=== PATIENT | female | born 1995 | race Caucasian/White ===

== ENCOUNTER 2023-11-11 09:49 | Outpatient (CLI) | payer BC, MEDICAID, SELFPAY ==
--- NOTE | 2023-11-11 09:45 | CRLHL7_ITS ---
For Patients: As a result of the Cures Act, medical imaging exams and procedure reports are released immediately into your electronic medical record. You may view this report before your referring provider. If you have questions, please contact your health care provider. INDICATION: First trimester scan, establish dates. COMPARISON: None. TECHNIQUE: Real-time france-scale imaging of the pelvis was performed. FINDINGS: Sonographic imaging demonstrates a single living intrauterine gestation. The embryo demonstrates a regular cardiac rate measuring 180 beats per minute. The embryo`s crown-rump length measurement of 2.7 cm corresponds to a gestational age of 9 weeks 3 days with a sonographic due date of 06/12/2024. There is a normal-appearing yolk sac. There are no gross abnormalities noted within the embryo at this early state of development. The gestational sac has a normal appearance. There is no evidence of a perigestational hemorrhage. The amount of fluid within the sac appears appropriate for gestational age. The cervix is closed. The myometrium appears normal. Normal right ovary. Left ovary not visualized. There are no suspicious fluid collections noted in the cul-de-sac. IMPRESSION: Single living intrauterine with sonographic gestational age 9 weeks 3 days and sonographic due date of 06/12/2024. Dictated by Zack Nicolas MD @ 11/11/2023 12:19:51 PM (Electronically Signed)
== END 2023-11-11 09:50 | disposition home or self-care (01) ==
LOC: US 09:51
PROVIDERS: Visit Provider Registered Nurse
DX: Z34.91 Encounter for supervision of normal pregnancy, unspecified, first trimester (principal); Z3A.09 9 weeks gestation of pregnancy
CPT/HCPCS: 76817

== ENCOUNTER 2023-12-09 10:04 | Outpatient (CLI) | payer BC, MEDICAID, SELFPAY | END 2023-12-09 10:05 | disposition home or self-care (01) | PROVIDERS: Visit Provider Obstetrics & Gynecology | DX: Z34.82 Encounter for supervision of other normal pregnancy, second trimester (principal) | CPT/HCPCS: 87491; 87591 ==

== ENCOUNTER 2024-01-06 10:47 | Outpatient (CLI) | payer BC, MEDICAID, SELFPAY | END 2024-01-06 10:48 | disposition home or self-care (01) | LOC: NFLDREF 10:48 | PROVIDERS: Visit Provider Obstetrics & Gynecology | DX: E03.9 Hypothyroidism, unspecified (principal) | CPT/HCPCS: 84443 ==

== ENCOUNTER 2024-01-21 08:11 | Outpatient (CLI) | payer BC, MEDICAID, SELFPAY | END 2024-01-21 08:12 | disposition home or self-care (01) | LOC: US 08:12 | PROVIDERS: Visit Provider Obstetrics & Gynecology | DX: O99.212 Obesity complicating pregnancy, second trimester (principal); Z3A.19 19 weeks gestation of pregnancy | CPT/HCPCS: 76811 ==

== ENCOUNTER 2024-01-21 10:07 | Outpatient (CLI) | payer BC, MEDICAID, SELFPAY | END 2024-01-21 10:08 | disposition home or self-care (01) | LOC: NFLDREF 10:09 | PROVIDERS: Visit Provider Obstetrics & Gynecology | DX: O99.212 Obesity complicating pregnancy, second trimester (principal); Z3A.19 19 weeks gestation of pregnancy | CPT/HCPCS: 86235 ==

== ENCOUNTER 2024-02-18 12:32 | Outpatient (CLI) | payer BC, MEDICAID, SELFPAY | END 2024-02-18 12:33 | disposition home or self-care (01) | LOC: US 12:33 | PROVIDERS: Visit Provider Obstetrics & Gynecology | DX: O99.212 Obesity complicating pregnancy, second trimester (principal); O26.892 Other specified pregnancy related conditions, second trimester; M06.9 Rheumatoid arthritis, unspecified; Z3A.23 23 weeks gestation of pregnancy | CPT/HCPCS: 76816 ==

== ENCOUNTER 2024-03-19 09:02 | Outpatient (CLI) | payer BC, MEDICAID, SELFPAY ==
--- NOTE | 2024-03-19 09:15 | CRLHL7_ITS ---
For Patients: As a result of the Century Cures Act, medical imaging exams and procedure reports are released immediately into your electronic medical record. You may view this report before your referring provider. If you have questions, please contact your health care provider. INDICATION: circumvallate placenta COMPARISON: 02/18/2024 TECHNIQUE: Real time france scale imaging of the fetus was performed. FINDINGS: Sonographic imaging demonstrates a single living intrauterine gestation. Fetus demonstrates a regular cardiac rate of 150 beats per minute. Fetus has a transverse position, head maternal right. The placenta lies posteriorly. Amniotic fluid volume appears normal and there is a single deepest vertical pocket: 6.7 cm. The estimated weight is 1471gm which lies at the greater than 97th %. On the prior OB ultrasound exam dated 02/18/2024 the estimated weight was at the 87th%. BPD 51st percentile. HC 82nd percentile. AC 96th percentile. FL 90th percentile. The HC/AC ratio measures 1.05 range (0.98-1.20). IMPRESSION: Sonographic gestational age 29 weeks 3 days and sonographic due date 06/01/2024. Sonographic age 12 days ahead of the clinical age. Estimated weight greater than 97th percentile. Abdominal circumference is 96th percentile. Dictated by Zack Nicolas MD @ 03/19/2024 8:21:39 PM (Electronically Signed)
== END 2024-03-19 09:03 | disposition home or self-care (01) ==
LOC: US 09:02
PROVIDERS: Visit Provider Obstetrics & Gynecology
DX: O43.113 Circumvallate placenta, third trimester (principal); Z3A.29 29 weeks gestation of pregnancy
CPT/HCPCS: 76816

== ENCOUNTER 2024-03-19 09:38 | Outpatient (CLI) | payer BC, MEDICAID, SELFPAY | END 2024-03-19 09:39 | disposition home or self-care (01) | PROVIDERS: Visit Provider Obstetrics & Gynecology | DX: Z34.92 Encounter for supervision of normal pregnancy, unspecified, second trimester (principal); Z3A.27 27 weeks gestation of pregnancy | CPT/HCPCS: 86592; J2791 ==

== ENCOUNTER 2024-04-02 08:16 | Outpatient (CLI) | payer BC, MEDICAID, SELFPAY | END 2024-04-02 08:17 | disposition home or self-care (01) | LOC: NFLDREF 13:28 | PROVIDERS: Visit Provider Obstetrics & Gynecology | DX: Z34.83 Encounter for supervision of other normal pregnancy, third trimester (principal); E03.9 Hypothyroidism, unspecified | CPT/HCPCS: 84443 ==

== ENCOUNTER 2024-04-19 07:53 | Outpatient (CLI) | payer BC, MEDICAID, SELFPAY ==
--- NOTE | 2024-04-19 08:15 | CRLHL7_ITS ---
For Patients: As a result of the Century Cures Act, medical imaging exams and procedure reports are released immediately into your electronic medical record. You may view this report before your referring provider. If you have questions, please contact your health care provider. INDICATION: Gestational Diabetes Mellitus TECHNIQUE: Real time france scale imaging of the fetus was performed. COMPARISON: 03/19/2024 FINDINGS/IMPRESSION: Sonographic imaging demonstrates a single living intrauterine gestation. Fetus demonstrates a regular cardiac rate of 141 beats per minute. Fetus has a breech position. The placenta lies posteriorly. Amniotic fluid volume appears normal and there is a single deepest pocket of 6.2 cm. The estimated weight is 2227gm which lies at the 83rd %. On the prior OB ultrasound dated 03/19/2024 the estimated weight was at the greater than 97th percentile. BPD 91st percentile. HC 95th percentile. AC 88th percentile. FL 44th percentile. Sonographic gestational age 34 weeks 0 days and sonographic due date 05/31/2024. Sonographic age 13 days ahead of the clinical dates The fetus was active and demonstrated normal breathing movements. There was normal flexion and extension of the trunk and extremities. Dictated by Zack Nicolas MD @ 04/19/2024 9:26:25 AM (Electronically Signed)
== END 2024-04-19 07:54 | disposition home or self-care (01) ==
LOC: US 07:53
PROVIDERS: Visit Provider Obstetrics & Gynecology
DX: O24.419 Gestational diabetes mellitus in pregnancy, unspecified control (principal); Z3A.34 34 weeks gestation of pregnancy
CPT/HCPCS: 76816; 76819

== ENCOUNTER 2024-04-26 12:14 | Outpatient (CLI) | payer BC, MEDICAID, SELFPAY ==
--- NOTE | 2024-04-26 12:15 | CRLHL7_ITS ---
For Patients: As a result of the Century Cures Act, medical imaging exams and procedure reports are released immediately into your electronic medical record. You may view this report before your referring provider. If you have questions, please contact your health care provider. INDICATION: Maternal gestational diabetes TECHNIQUE: Ultrasound OB pelvis transabdominal. Real-time france-scale imaging of the fetus was performed with color Doppler and spectral Doppler analysis of the umbilical artery without stress testing. COMPARISON: 04/19/2024 FINDINGS: Sonographic imaging demonstrates a single living intrauterine gestation. Fetus demonstrates a regular cardiac rate of 137 beats per minute. Fetus has a cephalic orientation. The placenta lies posterior. Amniotic fluid volume appears normal with a MVP of 6.7 cm. breathing movements, motion, and tone were all observed. IMPRESSION: Single viable intrauterine with a biophysical profile 12/03. Dictated by Madhu Corey MD @ 04/26/2024 2:29:30 PM (Electronically Signed)
== END 2024-04-26 12:15 | disposition home or self-care (01) ==
LOC: US 12:15
PROVIDERS: Visit Provider Obstetrics & Gynecology
DX: O24.419 Gestational diabetes mellitus in pregnancy, unspecified control (principal)
CPT/HCPCS: 76819

== ENCOUNTER 2024-05-03 10:46 | Outpatient (CLI) | payer BC, MEDICAID, SELFPAY ==
--- NOTE | 2024-05-03 10:45 | CRLHL7_ITS ---
For Patients: As a result of the Century Cures Act, medical imaging exams and procedure reports are released immediately into your electronic medical record. You may view this report before your referring provider. If you have questions, please contact your health care provider. INDICATION: GDMA2 COMPARISON: 04/26/2024 TECHNIQUE: Real time france scale imaging of the fetus was performed. Without non-stress testing. FINDINGS: Sonographic imaging demonstrates a single living intrauterine gestation. Fetus demonstrates a regular cardiac rate of 137 beats per minute. Fetus has a vertex position. The amniotic fluid volume appears normal and there is a single deepest pocket measurement of 6.4 cm. The fetus was active and demonstrated normal breathing movements. There was normal flexion and extension of the trunk and extremities. IMPRESSION: Normal biophysical profile score of 8 out of 8. Dictated by Zack Nicolas MD @ 05/03/2024 11:50:40 AM (Electronically Signed)
== END 2024-05-03 10:47 | disposition home or self-care (01) ==
LOC: US 10:46
PROVIDERS: Visit Provider Obstetrics & Gynecology
DX: O24.419 Gestational diabetes mellitus in pregnancy, unspecified control (principal)
CPT/HCPCS: 76819

== ENCOUNTER 2024-05-10 09:08 | Outpatient (CLI) | payer BC, MEDICAID, SELFPAY ==
--- NOTE | 2024-05-10 09:15 | CRLHL7_ITS ---
For Patients: As a result of the Century Cures Act, medical imaging exams and procedure reports are released immediately into your electronic medical record. You may view this report before your referring provider. If you have questions, please contact your health care provider. INDICATION: GDM COMPARISON: 05.03.24 TECHNIQUE: Real time france scale imaging of the fetus was performed. Without non-stress testing. FINDINGS: Sonographic imaging demonstrates a single living intrauterine gestation. Fetus demonstrates a regular cardiac rate of 139 beats per minute. Fetus has a vertex position. The amniotic fluid volume appears normal and there is a single deepest pocket measurement of 5.1 cm. The fetus was active and demonstrated normal breathing movements. There was normal flexion and extension of the trunk and extremities. IMPRESSION: Normal biophysical profile score of 8 out of 8. Dictated by Zack Nicolas MD @ 05/10/2024 10:03:31 AM (Electronically Signed)
== END 2024-05-10 09:09 | disposition home or self-care (01) ==
LOC: US 09:08
PROVIDERS: Visit Provider Obstetrics & Gynecology
DX: O24.419 Gestational diabetes mellitus in pregnancy, unspecified control (principal)
CPT/HCPCS: 76819

== ENCOUNTER 2024-05-17 09:07 | Outpatient (CLI) | payer BC, MEDICAID, SELFPAY ==
--- NOTE | 2024-05-17 09:15 | CRLHL7_ITS ---
For Patients: As a result of the Century Cures Act, medical imaging exams and procedure reports are released immediately into your electronic medical record. You may view this report before your referring provider. If you have questions, please contact your health care provider. INDICATION: Gestational diabetes TECHNIQUE: Limited transabdominal two-dimensional france-scale ultrasound examination. COMPARISON: 05/10/2024 FINDINGS: There is a living fetus in cephalic lie with gestational age of 36 weeks 1 day by LMP and 38 weeks 4 days by today`s measurements. EDC based on LMP is 06/13/2024. BPD: 9.3 cm, 37 weeks 6 days Head circumference: 34.7 cm, 40 weeks 2 days Abdominal circumference: 36 cm, 39 weeks 6 days Femur length: 7.0 cm, 36 weeks 1 day HC/AC: 0.97 The weight is estimated at 3617 grams, greater than the 97th percentile. The biophysical profile score is 8/8 with component scores of 2 for breathing movements, 2 for gross body movements, 2 for tone and 2 for amniotic fluid/SDP. The heart rate is measured at 160 beats per minute and the rhythm appears regular. The amniotic fluid volume is within normal limits with single deepest pocket of 7.9 cm. The placenta is posterior and superior to the cervical os. There is no evidence of previa. IMPRESSION: 1. Living fetus in cephalic lie with gestational age of 36 weeks 1 day by LMP and 38 weeks 4 days by today`s measurements. EDC based on LMP is 06/13/2024. 2. weight is estimated at 3617 grams, greater than the 97th percentile. 3. Biophysical profile score is 8/8. Dictated by Jordon Doty MD @ 05/17/2024 1:14:26 PM (Electronically Signed)
== END 2024-05-17 09:08 | disposition home or self-care (01) ==
LOC: US 09:08
PROVIDERS: Visit Provider Obstetrics & Gynecology
DX: O24.419 Gestational diabetes mellitus in pregnancy, unspecified control (principal); Z3A.36 36 weeks gestation of pregnancy
CPT/HCPCS: 76816; 76819; 87081; 87653

== ENCOUNTER 2024-05-24 09:08 | Outpatient (CLI) | payer BC, MEDICAID, SELFPAY ==
--- NOTE | 2024-05-24 09:15 | CRLHL7_ITS ---
For Patients: As a result of the Cures Act, medical imaging exams and procedure reports are released immediately into your electronic medical record. You may view this report before your referring provider. If you have questions, please contact your health care provider. OB ULTRASOUND BIOPHYSICAL PROFILE ELIZ by US: 06/13/2024. GA: 37 w, 1 d. Single. Comparison: 05/17/2024, 05/10/2024, 05/03/2024. INDICATION: Gestational diabetes mellitus. TECHNIQUE: Real time france scale imaging of the fetus was performed. Transabdominal. CERVIX: Not visualized. POSITIONING: Vertex. AMNIOTIC FLUID: 7.0 cm. SDP (N: greater than 2 x 1 cm) BIOPHYSICAL PROFILE: Total score: 8. Gross body movements: 2. tone: 2. Respiratory activity: 2. Amniotic fluid: 2. (SDP N: greater than 2 x 1 cm) PLACENTA: Technique: Transabdominal. PLACENTA POSITION: Posterior. DOPPLER: heart rate: 138 bpm. IMPRESSION: Normal biophysical profile score 8/8. Zack Nicolas M.D. Diagnostic Radiologist [email or web address] MANFRED/[email or web address] jett/Dictated by: Zack Nicolas MD @ 05/24/2024 10:03:00 AM (Electronically Signed)
== END 2024-05-24 09:09 | disposition home or self-care (01) ==
LOC: US 09:08
PROVIDERS: Visit Provider Obstetrics & Gynecology
DX: O24.419 Gestational diabetes mellitus in pregnancy, unspecified control (principal); Z3A.37 37 weeks gestation of pregnancy
CPT/HCPCS: 76819

== ENCOUNTER 2024-05-31 09:04 | Outpatient (CLI) | payer BC, MEDICAID, SELFPAY ==
--- NOTE | 2024-05-31 09:15 | CRLHL7_ITS ---
For Patients: As a result of the Cures Act, medical imaging exams and procedure reports are released immediately into your electronic medical record. You may view this report before your referring provider. If you have questions, please contact your health care provider. OB ULTRASOUND BIOPHYSICAL PROFILE ELIZ by US: 06/13/2024. GA: 38 w, 1 d. Single. Comparison: 05/24/2024, 05/17/2024, 05/10/2024. INDICATION: Gestational diabetes mellitus. TECHNIQUE: Real time france scale imaging of the fetus was performed. Transabdominal. CERVIX: Not visualized. POSITIONING: Vertex. AMNIOTIC FLUID: 5.6 cm. SDP (N: greater than 2 x 1 cm) BIOPHYSICAL PROFILE: Total score: 8. Gross body movements: 2. tone: 2. Respiratory activity: 2. Amniotic fluid: 2. (SDP N: greater than 2 x 1 cm) PLACENTA: Technique: Transabdominal. PLACENTA POSITION: Posterior. DOPPLER: heart rate: 135 bpm. IMPRESSION: Normal biophysical profile score 8/8. Zack Nicolas M.D. Diagnostic Radiologist [email or web address] MANFRED/[email or web address] jett/Dictated by: Zack Nicolas MD @ 05/31/2024 11:03:00 AM (Electronically Signed)
== END 2024-05-31 09:05 | disposition home or self-care (01) ==
LOC: US 09:05
PROVIDERS: Visit Provider Obstetrics & Gynecology
DX: O24.419 Gestational diabetes mellitus in pregnancy, unspecified control (principal); Z3A.38 38 weeks gestation of pregnancy
CPT/HCPCS: 76819

== ENCOUNTER 2024-06-02 05:51 | Inpatient (IN) | payer BC, MEDICAID, SELFPAY ==
[2024-06-02] VITALS (20 sets, daily range): BP systolic 97–134; BP diastolic 57–79; PULSE 59–79; RESP 16–20; TEMP 36.7–36.9; O2SAT 95–100; BMI 42.0
[2024-06-02 06:31] LABS: Basophils Absolute Auto 0.02 K/uL (0.00-0.30); Basophils Percent Auto 0.3 % (0.0-3.0); Eosinophils Absolute Auto 0.05 K/uL (0.00-0.50); Eosinophils Percent Auto 0.7 % (0.0-7.0); Hematocrit 35.7 % (33.0-51.0); Hemoglobin* 11.3 gm/dL (12.0-16.0); Immature Granulocytes Abs Auto 0.04 K/uL (0.00-0.30); Immature Granulocytes Pct Auto 0.6 %; Lymphocytes Absolute Auto 2.06 K/uL (0.90-2.90); Lymphocytes Percent Auto 29.4 % (20-44); Mean Corpuscular HGB Conc 32 gm/dL (32-36); Mean Corpuscular Hemoglobin 25 pg (26-34); Mean Corpuscular Volume 80 fL (80-100); Monocytes Percent Auto 11.1 % (0.0-11.0); Neutrophils Absolute Auto 4.06 K/uL (1.7-7.0); Neutrophils Percent Auto 57.9 % (42.0-72.0); Platelet Count* 157 K/uL (140-440); RDW Coefficient of Variation % 13.8 % (11.5-15.5); Red Blood Count 4.46 m/uL (4.00-5.20); White Blood Count* 7.01 K/uL (4.50-11.00)
[2024-06-02] MEDS: LACTATED RINGERS 1000 ML 1,000 ML IV (06:42)
[2024-06-02 06:55] LABS: Slide Review Reflex No
--- NOTE | 2024-06-02 07:04 | W.PM.LDBA ---
Subjective History of Present Illness Narrative: Patient is being admitted to Labor and Delivery for repeat . She is a 28 year old at 38 weeks, 3 days gestation. Her full history and physical was dictated by Dr. Shearer on 05/20. Please see this for details. Specific Issues/Plans H&P Dr. Shearer 05/20 Transfer OB @ 9w2d. Grand multiparity # GDMA2 diagnosed 04/02/24 History of GDMA2, previouly treated with metformin Hemoglobin A1c 5.7% (prediabetes) Early 1 hour GTT at 16-20 weeks: 131 Repeat 24-28 weeks: 155. Sugars monitored for one week at 28-29 weeks: GDMA2. Referred to July for initiation of insulin and teaching: NPH 15 U at HS, will plan to increase to twice daily NPH shortly Nutrition referral placed 04/05: appt 04/06: had been checking 1 hour postprandials. Increased NPH to 19u QHS on 04/26/24 Monthy US for growth Twice weekly testing beginning 32 weeks: Ordered. 04/26/24: NPH insulin 19u QHS 04/30/24: NPH insulin 21u QHS, 5u Qam # history of macrosomia in 3rd and 4th : 11 lb 1 oz, 8 lb 13 oz Suspected macrosomia at 28 weeks; EFW >97% and AC 96.4%. Serial US for growth. # pre diabetes Hemoglobin A1c 10/29/2023: 5.7% # history of x4 Has decided against bilateral salpingectomy - counseled on LARCs/vasectomy as well Federal tubal consent signed 03/19 # rheumatoid arthritis Followed [facility]ology,[facility]. Currently on no medication, if she has symptoms will be placed on Humira SSA / SSB antibodies checked 01/20 per MFM: negative # hypothyroidism Levothyroxine 125 mcg; no dose change during 10/29/23 TSH: 0.7 Second-trimester 01/06/24: 0.774 3rd trimester 04/02: 0.919 # obesity, BMI 39.7 Level 2 ultrasound and MFM consult, consider testing [x] see 01/21/24 MFM notes [x] repeat in 3-4 weeks to complete FAS (LVOT, diaphragm) 02/18/24 # depression and anxiety, doing well off medication # history of LEEP 2020 Last pap 11/13/22: NIL/-HPV. 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 On repeat normal. Hematology: no further testing required # Marginal cord insertion with circumvallate placenta. Repeat growth every 4 weeks starting at 28 weeks, and weekly BPP at 36 weeks. #Question of dating by pt/MFM reportedly - She is dated by 7wk US with CRL/positive cardiac activity with ELIZ of 06/13/23 labs 11/05/2023: O negative Negative antibody screen Hemoglobin 11.7 Platelets 217 Rubella immune RPR nonreactive Hepatitis-B surface antigen nonreactive HIV negative Gonorrhea and chlamydia: Urine pending Urine culture no growth Hep C negative Varicella equivocal TSH 0.7 Hemoglobin A1c 5.7 Carrier screening 11/12/2023: Negative for CF and SMA Last Pap 11/13/2022:NIL/-HPV Imagin10/06/2023: Gestational sac only. 10/29/2023: Length 12.3 mm, 7 weeks and 3 days. ELIZ 06/13/2024 heart rate 160 01/21/2024: Level 2. Cephalic, partial circumvallate placenta with marginal cord insertion that is posterior without previa. Three-vessel cord. Normal fluid. EFW 96%, AC 90%. Suboptimal visualization of LVOT and diaphragm. Normal visualized anatomy. Repeat level 2 US in 3-4 weeks with MFM: Marginal cord insertion and partial circumvallate placenta, recommend repeat assessment of growth and anatomy every 4 weeks starting at 28 weeks and recommend weekly BPP at 36 weeks due to BMI 39 and maternal autoimmune RA, which can be scheduled through [facility]. 03/19/24: Transverse, head to maternal right. Posterior placenta, SDP 6.7 cm, EFW >97%, AC 96%. 04/19/24: Breech, SDP 6.2 cm. EFW 2227 gm, 4lb 15 oz, 83 %. BPD 91%, HC 95%, AC 88%, FL 44%. 05/17/24: cephalic, EFW >97%, AC >97%tile. SDP 7.9 cm. BPP 12/03 Flu:Declines COVID: Declines RSV: 04/19/24 Rhogam: 03/19 Tdap: 04/02 OB - Problem Based A/P Additional Plan (1) GDM, class A2: Status: Acute (2) History of : Problem details: x4 Status: Acute (3) : Status: Acute Delivery/Labor/Induction Plan Plan: Section OB Exam Physical Exam Vital signs: Temp Pulse Resp BP Pulse Ox 98.2 F 74 20 134/79 100 06/02/24 06:09 06/02/24 06:09 06/02/24 06:09 06/02/24 06:09 06/02/24 06:10 Narrative: Physical exam: General: No acute distress Psych: Alert and oriented x3, full affect HEENT: Normocephalic, atraumatic Heart: Regular rate and rhythm, no murmur rub or gallop Lungs: Clear to auscultation bilaterally Abdomen: Soft, nontender, gravid, cephalic lie, pannus overhangs lower uterine segment Lower extremities: No edema or erythema tracing: Baseline 130, accelerations present, no decelerations, moderate variability
--- NOTE | 2024-06-02 07:30 | P.ANES_ITS ---
Anesthesia Charges Start Date/Time Anesthesia Start Date: 06/02/24 Anesthesia Start Time: 07:15 Stop Date/Time Anesthesia Stop Date: 06/02/24 Anesthesia Stop Time: 09:01 Coding CPT Codes CPT Codes: ANESTH CS DELIVERY - 20820 ([id number]) P3 - PATIENT W/SEVERE SYS DISEASE, QK - CHILD LIFE THERAPIST 2-4 CNCRNT ANES PROC, QX - SHIFT ENGINEER SVC W/ MD MED DIRECTION
--- NOTE | 2024-06-02 07:30 | W.ANESCHARGE ---
Anesthesia Charges Start Date/Time Anesthesia Start Date: 06/02/24 Anesthesia Start Time: 07:15 Stop Date/Time Anesthesia Stop Date: 06/02/24 Anesthesia Stop Time: 09:01 Coding CPT Codes CPT Codes: ANESTH CS DELIVERY - 15545 ([id number]) P3 - PATIENT W/SEVERE SYS DISEASE, QK - FILM CUTTER 2-4 CNCRNT ANES PROC, QX - LINOLEUM MECHANIC SVC W/ MD MED DIRECTION
[2024-06-02] MEDS: CEFAZOLIN 1 GM inj 3 GM IVP (07:36)
--- NOTE | 2024-06-02 07:45 | SUR.OPER ---
PATIENT QUESTIONS ANSWERED SATISFACTORILY PREOPERATIVELY. PATIENT BROUGHT TO OR #5 PER AMBULATION. Patient positioned supine on OR #5 bed for the procedure. Final approval of positioning by surgeon.
--- NOTE | 2024-06-02 08:00 | SUR.OPER ---
CORD BLOOD SPECIMEN SENT W/ OB RN's.
[2024-06-02] MEDS: KETOROLAC 30 MG/ML inj IVP ×3 (08:39→20:56)
--- NOTE | 2024-06-02 08:50 | PM.OBPRCCS ---
Procedure Date of procedure: 06/02/24 Pre-op diagnosis: 38 weeks, 3 days gestation Four previous deliveries Gestational diabetes, on insulin Post-op diagnosis: same Procedure Done: Global [facility] bill your pro fee for this procedure?: Yes Blood Loss Measurement Type: QBL (517) Bakri Used: No IV fluids (mL): 1,800 Urine Output (mL): 200 Surgeon: Vanita Shearer MD Tube Coremaker: Karoline Leonard MD Anesthesia Type: Spinal and TAP Block Findings: 1. Male infant, cephalic OA presentation, Apgars of 8 and 9, weight pending at time of this dictation. 2. 1 cm midline incisional hernia overlying previous Pfannenstiel incision 3. Normal appearance of uterus, bilateral tubes and ovaries Procedure Name: Repeat delivery Procedure Description: PROCEDURE IN DETAIL: Patient was taken to the operating room with IV running. She received cefazolin in preoperative prophylaxis. Spinal anesthesia had previously been administered. Bangura catheter was inserted. TRAXI pannus retractor was applied to abdomen. She was prepped and draped in the usual sterile fashion. Anesthesia was tested and found to be adequate. A low-transverse skin incision was made with a scalpel and carried through to the underlying layer of fascia with the scalpel. The subcutaneous fat was dissected off the underlying fascia with Bovie. The fascia was noted to have a 1 cm defect in the midline. This was extended laterally with scissors. The fascia was sharply dissected off the rectus muscles superiorly and inferiorly. The rectus muscles were in the midline. Peritoneum was identified and entered bluntly. Bovie was used to widen this opening laterally. There was scarring around the bladder reflection which was dissected off the lower uterine segment sharply. Jarrett O retractor was inserted and tightened down, providing excellent visualization of the lower uterine segment. The bladder reflection was found to be well below the planned site for hysterotomy. Low-transverse uterine incision was made with a scalpel. Incision was widened bluntly. The 's head was grasped through the hysterotomy and delivered with the help of fundal pressure. The remainder of the body delivered without incident. Cord was clamped and cut after 30 seconds. Infant was handed off to attending nurses. The placenta was delivered with gentle traction on the cord. The uterus was cleaned of all clots and debris with the dry lap pad. The hysterotomy was reapproximated with 0 Vicryl in a running, locked fashion. Chromic suture was used to close a bleeding defect of the serosa near the left word superior aspect of the incision. Hemostasis was noted. The adnexa were examined and noted to be normal in appearance. The cul-de-sac and gutters were cleansed with dampened laparotomy sponge, removing any further clots and debris. The Jarrett O retractor was removed. The hysterotomy was reexamined and found to be hemostatic. The peritoneum was reapproximated with 2 0 Vicryl in a running fashion. The rectus muscles were examined and found to be hemostatic. The fascia was reapproximated with 0 looped PDS in a running fashion. Subcutaneous fat was irrigated and Bovie used on oozing vessels. The subcutaneous fat was reapproximated with 2 0 plain gut suture in an interrupted fashion. The skin was closed with a subcuticular stitch of 4-0 Monocryl. Silver dressing was applied above this. Patient tolerated procedure well was taken to recovery area in stable condition. Complications: None Pathology: specimen obtained, sent to pathology (Placenta, for indication of gestational diabetes) Surgery Debrief Performed: Yes Surgery Debrief Comment: Postoperative debrief was verbalized with OR staff, including a verification of pathology specimens to be sent as described above. Bartlett Infant total score - 1 minute: 8 total score - 5 minute: 9
--- NOTE | 2024-06-02 09:08 | P.ANES_ITS ---
Anesthesia Charges Start Date/Time Anesthesia Start Date: 06/02/24 Anesthesia Start Time: 07:15 Stop Date/Time Anesthesia Stop Date: 06/02/24 Anesthesia Stop Time: 09:01 Coding CPT Codes CPT Codes: ANESTH CS DELIVERY - 15056 ([id number]) P3 - PATIENT W/SEVERE SYS DISEASE, QK - RECOVERY ADVOCATE 2-4 CNCRNT ANES PROC, QX - WELCOME DESK AGENT SVC W/ MD MED DIRECTION
--- NOTE | 2024-06-02 09:08 | W.ANESCHARGE ---
Anesthesia Charges Start Date/Time Anesthesia Start Date: 06/02/24 Anesthesia Start Time: 07:15 Stop Date/Time Anesthesia Stop Date: 06/02/24 Anesthesia Stop Time: 09:01 Coding CPT Codes CPT Codes: ANESTH CS DELIVERY - 95454 ([id number]) P3 - PATIENT W/SEVERE SYS DISEASE, QK - TRACK LABORER 2-4 CNCRNT ANES PROC, QX - AUTHORIZATION NURSE SVC W/ MD MED DIRECTION
--- NOTE | 2024-06-02 09:09 | W.PM.NB ---
Nerve Block Nerve Block Time Seen by Provider: 08:45 Date Seen: 06/02/24 Type of block requested by surgeon for post-operative analgesia: TAP Side: bilateral Time out performed: Yes Verification of patient name: Yes Verification of date of : Yes Site marking: not applicable Name of person performing procedure: Fadia Simeon Continuous monitoring Was continuous monitoring of O2 sat, B/P, head strength and conditioning coach, recorded every 15 minutes?: Yes Procedure Checklist: sterile prep, needles and gloves Ultrasound guided. Images saved: Yes Medications given in 5ml increments after negative aspiration: Marcaine %: 0.25 mL: 30 Needle gauge: 20 and Exparel mL: 10 Needle gauge: 20 Patient tolerated procedure well: Yes Block Charges Block Charge (with Pro Fee): TAP Bilateral Use of Ultrasound Machine for Block: Yes- US Guidance/pain block
[2024-06-02] MEDS: LACTATED RINGERS 1000 ML 1,000 ML 125 ML IV (09:58)
[2024-06-02] MEDS: DOCUSATE SODIUM 100 MG CAPSULE PO (14:59)
[2024-06-02] MEDS: LACTATED RINGERS 500 ML 500 ML IV (17:54)
[2024-06-02] MEDS: ACETAMINOPHEN 500 MG TABLET 1000 MG PO ×2 (18:03→23:46)
[2024-06-02] MEDS: ENOXAPARIN 40 MG/0.4 ML INJ SUBCUT (20:56)
[2024-06-03 00:29] VITALS: BP 104/69; PULSE 73; RESP 16; TEMP 36.6; O2SAT 97
[2024-06-03] MEDS: KETOROLAC 30 MG/ML inj IVP (03:09)
[2024-06-03 04:15] VITALS: BP 107/67; PULSE 72; RESP 16; TEMP 36.6; O2SAT 97
[2024-06-03] MEDS: ACETAMINOPHEN 500 MG TABLET 1000 MG PO ×3 (05:54→20:33)
[2024-06-03 06:50] LABS: Hemoglobin* 8.8 gm/dL (12.0-16.0)
--- NOTE | 2024-06-03 07:24 | PM.OBPNVD1 ---
OB - PN:Subj Subjective Date Seen: 06/03/24 Narrative: Eloisa is a 28 year old who was admitted for scheduled repeat . The patient feels well.? The pain is well controlled with current medications.?She plans to switch to PO pain medicine today. She has no new complaints.? Urinary output is adequate and she is voiding without difficulty.? Has a good appetite, is tolerating food, is not passing flatus, and has not had a bowel movement.? Has scant amount of rubra lochia.? She is ambulating well. She is and reports it is going well.? OB - PN: Obj Exam Physical Exam: Vital signs: Temp Pulse Resp BP Pulse Ox O2 Del Method 98 F 72 16 107/67 97 Room Air 06/03/24 04:15 06/03/24 04:15 06/03/24 04:15 06/03/24 04:15 06/03/24 04:15 06/03/24 04:15 Narrative: GENERAL APPEARANCE:? normal affect, alert, no distress MOOD:? appropriate CHEST:? clear to auscultation HEART:? regular rate and rhythm ABDOMEN:? soft, non-tender the uterine fundus is At Umbilicus, Midline and is appropriate for the stage of recovery. EXTREMITIES:? normal and mild edema Incision: Silvidene dressing in place with no discharge seen on dressing and no surrounding erythema OB - PN: Obj Data Labs Labs: Laboratory Results - last 24 hr 06/03/24 06:41 Hgb 8.8 L OB - PN: A/P Delivery Assessment and Plan (1) care and examination of lactating mother: Status: Acute (2) GDM, class A2: Status: Acute (3) History of : Problem details: x4 Status: Acute (4) Status post repeat low transverse section: Status: Acute (5) Obesity affecting : Status: Acute Plan day: 1 Plan: routine care Comments: PP day #1 Routine care Change to PO pain medications hgb 8.8. Will initiate iron every other day by mouth for 2-6 weeks as indicated. May see as desired Pt to decide if she desires GDM testing inpatient or outpatient. Reviewed options with her. Anticipate discharge 06/04/2024
[2024-06-03] MEDS: ENOXAPARIN 40 MG/0.4 ML INJ SUBCUT ×2 (09:17→20:34)
[2024-06-03] MEDS: FERROUS SULFATE 325 MG TABLET PO (09:17)
[2024-06-03 09:55] VITALS: BP 106/70; PULSE 69; RESP 16; TEMP 36.6; O2SAT 97
[2024-06-03] MEDS: IBUPROFEN 600 MG TABLET PO ×3 (09:57→22:30)
[2024-06-03] MEDS: DOCUSATE SODIUM 100 MG CAPSULE PO (09:58)
[2024-06-03 17:00] VITALS: BP 105/72; PULSE 68; RESP 16; TEMP 36.6; O2SAT 98
[2024-06-04 00:29] VITALS: BP 108/64; PULSE 70; RESP 16; TEMP 36.6; O2SAT 97
[2024-06-04] MEDS: ACETAMINOPHEN 500 MG TABLET 1000 MG PO ×2 (03:06→09:20)
[2024-06-04] MEDS: IBUPROFEN 600 MG TABLET PO (06:02)
--- NOTE | 2024-06-04 07:33 | P.DS_ITS ---
DS: Providers Provider Date Seen: 06/04/24 Date of admission: 06/02/24 05:51 Primary care physician: Not a Local Provider Admitting Clinician: Vanita Shearer MD Attending Physician on discharge: Brenda Devi CNM DS: Diagnosis Discharge Diagnosis (1) Status post repeat low transverse section: Status: Acute (2) care and examination of lactating mother: Status: Acute (3) GDM, class A2: Status: Resolved Problem details: Plans 2 hour gct at 6 week (4) Obesity affecting : Status: Acute (5) Hypothyroidism: Status: Acute Problem details: Continue same levothyroxine dose , check TSH at 6 week pp visit (6) Depression: Status: Acute Exam Narrative: Exam Narrative: GENERAL APPEARANCE:? normal affect, alert, no distress MOOD:? appropriate CHEST:? clear to auscultation HEART:? regular rate and rhythm ABDOMEN:? soft, non-tender the uterine fundus is At Umbilicus, Midline and is appropriate for the stage of recovery. EXTREMITIES:? normal and no edema INCISION: Healing well, no surrounding erythema, abnormal induration or discharge Const: Vital Signs, click to edit/add: Vital Signs - 24 hr 06/03/24 09:55 06/03/24 17:00 06/04/24 00:29 Temperature 97.9 F 97.8 F 97.8 F Pulse Rate [Pulse Oximeter] 69 68 70 Respiratory Rate 16 16 16 Blood Pressure [Ri ght Arm] 106/70 105/72 108/64 Pulse Oximetry 97 98 97 Oxygen Delivery Me thod Room Air Room Air Room Air Documenting provider has reviewed patient's vital signs: yes OB - DS: Summary Hospital Course Hospital Course: The patient is a 28 year old G [] P [] at [] weeks gestation that was admitted to the Center on 06/02/24 for []. She had an [uncomplicated/complicated] [vaginal/] delivery. She delivered a viable [male/female] infant. She is [breast/bottle] feeding. the patient has done well. Peripartum Data Procedures: Procedures Operation Date: 06/02/24 07:15 Actual Procedure Side Surgeon p Repeat Section Vanita Shearer MD [facility] Gender: Male Time Spent with Patient Time attestation: Total time spent providing and/or coordinating discharge services: Discharge Plan Discharge Disposition: Home, Self-Care Date of Admission: 06/02/24 05:51 Attending Provider on Discharge: Brenda Devi Primary Care Provider: Provider,Not a Local Condition: Stable Anticipated Discharge Date/Time: 06/04/24 12:00 Discharge Medications: New acetaminophen 500 mg Tablet 1,000 mg PO Q6H PRN (Reason: Pain) Qty: 0 0RF ferrous sulfate 325 mg (65 mg iron) Tablet 325 mg PO Q48H Qty: 60 0RF docusate sodium 100 mg Capsule 100 mg PO DAILY Qty: 60 0RF ibuprofen 600 mg Tablet 600 mg PO Q6H PRN (Reason: Pain) Qty: 60 0RF oxycodone 5 mg Tablet 5 - 10 mg PO Q4H PRN (Reason: Pain) Qty: 15 0RF Continued [id number] 3-fat com #1 27-1-300 mg capsule 1 cap PO DAILY levothyroxine 125 mcg tablet 125 mcg PO QDAY calcium carbonate [Tums] 200 mg calcium (500 mg) tablet,chewable 200 mg PO BID Discontinued (DME) Test Strips Misc See Rx Instructions .MEDSUPPLY Qty: 100 3RF Rx Instructions: Test blood sugar 4 times daily. (DME) lancets Misc See Rx Instructions .MEDSUPPLY Qty: 100 3RF Rx Instructions: Test blood sugar 4 times daily. (DME) Blood Glucose Meter Misc See Rx Instructions .MEDSUPPLY Qty: 1 0RF Rx Instructions: As directed alcohol swabs Pads, Medicated 1 pad topical TID Qty: 100 1RF (DME) insulin syringe-needle U-100 [Sure Comfort Insulin Syringe] 1 mL 30 gauge x 5/16 syringe See Rx Instructions .ROUTE .MEDSUPPLY Qty: 100 3RF Rx Instructions: As directed once daily at bedtime. Humulin N NPH U-100 Insulin 100 unit/mL suspension 26 unit subcut .hs Qty: 30 4RF Patient Comments: 21 units at HS and 5 units in am Rx Instructions: will start with once a day dosing at bedtime Discharge Orders: Discharge Order (Routine); Ordered 06/04/24 Ordered By: rBenda Devi Patient Education: OB Over the Counter Medication Information, OB /Breast Feeding Additional Instructions: Discharge instructions were reviewed with the patient including signs and symptoms of infection and home going medications Lifting Restrictions: 20 pounds for 6 weeks No not submerge incision under water X 2 weeks? Nothing vaginally for 6 weeks: no tampons or intercourse Do not drive while taking narcotic pain medication(s) Off Work or School for 8 weeks 1-week incision check with dressing removal, can be combined with 2 week visit. 2-week visit: incision check, discuss infant feeding concerns, review control options and screen for anxiety/depression. 6-week visit for an annual exam with 2 hour glucose challenge test consultation services are available to all mothers and babies for the first year after delivery.? To make an appointment, please call [phone]. Activity Level: Activity as Tolerated Discharge Diet: Regular Follow Up Appointments: [facility] [Provider Group] Forms: artandseekth Info Instructions
[2024-06-04 09:14] VITALS: BP 118/76; PULSE 68; RESP 16; TEMP 36.8; O2SAT 98
[2024-06-04] MEDS: DOCUSATE SODIUM 100 MG CAPSULE PO (09:20)
[2024-06-04] MEDS: ENOXAPARIN 40 MG/0.4 ML INJ SUBCUT (09:20)
== END 2024-06-04 11:40 | disposition home or self-care (01) | DRG 540 ==
PROVIDERS: Admitting Provider Obstetrics & Gynecology; Visit Provider Obstetrics & Gynecology
PROC: 10D00Z1 Extraction of Products of Conception, Low, Open Approach (ICD-10-PCS; CPT 59514; principal; 2024-06-02 07:15)
DX: O34.211 Maternal care for low transverse scar from previous cesarean delivery (principal); O24.424 Gestational diabetes mellitus in childbirth, insulin controlled; G89.18 Other acute postprocedural pain; K43.2 Incisional hernia without obstruction or gangrene; O26.893 Other specified pregnancy related conditions, third trimester; Z67.41 Type O blood, Rh negative; O99.344 Other mental disorders complicating childbirth; F32.A Depression, unspecified; F41.9 Anxiety disorder, unspecified; O99.284 Endocrine, nutritional and metabolic diseases complicating childbirth; E03.9 Hypothyroidism, unspecified; O99.214 Obesity complicating childbirth; E66.9 Obesity, unspecified; O90.81 Anemia of the puerperium; D64.9 Anemia, unspecified; Z37.0 Single live birth; Z3A.38 38 weeks gestation of pregnancy
CPT/HCPCS: 01961; 36415; 64488; 76942; 85018; 85025; 85461; 86850; 86870; 86880; 86885; 86900; 86901; 86905; 86906; 88307; A4314; A9270; J0665; J0666; J0690; J1650; J1885; J2371; J2590; J2704; J2791; J7120

== ENCOUNTER 2024-07-14 08:18 | Outpatient (CLI) | payer BC, MEDICAID, SELFPAY | END 2024-07-14 08:19 | disposition home or self-care (01) | LOC: NFLDREF 09:07 | PROVIDERS: Visit Provider Advanced Practice Midwife | DX: E03.9 Hypothyroidism, unspecified (principal); R73.03 Prediabetes; Z39.2 Encounter for routine postpartum follow-up | CPT/HCPCS: 82947; 82950; 84443 ==